=== PATIENT | male | born 1965 | race Caucasian/White ===

== ENCOUNTER 2021-07-22 20:55 | Emergency (ER) | payer BC, SELFPAY ==
[2021-07-22 21:22] VITALS: BP 134/75; PULSE 67; RESP 18; TEMP 36.6; O2SAT 97; BMI 26.7
--- NOTE | 2021-07-22 21:32 | W.ED.WOUNDLC ---
HPI - Wound/Laceration General: Chief Complaint: Wound/Laceration Stated Complaint: Cut Left Hand Time Seen by Provider: 07/22/21 21:29 History of Present Illness: HPI narrative: 56-year-old male patient comes in today with complaints of injury to the left hand. Patient was stressing out a deer when he cut the side of his left hand on the knife. There is a 2-1/2 cm laceration noted to the ulnar side of the hand. Patient has normal range of motion of the hand. Patient cannot recall his last tetanus. Patient denies any allergies. Review of Systems General: Reports: 10 or more systems reviewed and unremarkable except in HPI and below Skin/Breast: Reports: other (Hand laceration) Physical Exam Const: COMMON NORMALS: no acute distress and patient oriented x3 GENERAL APPEARANCE: cooperative HENMT: COMMON NORMALS: normocephalic HEAD & SCALP: normal to inspection and normocephalic Eye: GENERAL EYE: appearance normal, both eyes and all related structures Neck/C-Spine: COMMON NORMALS: full ROM Chest: COMMONS NORMALS: normal inspection of the chest Resp: COMMON NORMALS: normal respiratory effort EFFORT & INSPECTION: Yes able to speak in complete sentences Cardio: COMMON NORMALS: regular rate and regular rhythm RATE: regular rate RHYTHM: regular rhythm GI: COMMON NORMALS: non-tender Extremity: NARRATIVE EXTREMITY EXAM: 2-1/2 cm laceration to the ulnar side of the left hand. Normal range of motion of the hand. Normal tendon function. Distal cap refill and sensation is intact. Neuro: COMMON NORMALS: patient oriented x3 and moves all extremities Psych: COMMON NORMALS: mental status grossly normal and cooperative Skin: COMMON NORMALS: no rashes or lesions noted GENERAL SKIN EXAM: no rashes or lesions noted Procedures Laceration Laceration 1: Site: hand Side (If applicable): left Size (cm): 2.5 Depth: simple, single layer Local Anesthetic: lidocaine 2% and with epi Amount of anesthesia used (mL): 3 Pre-repair: wound explored and irrigated extensively Skin layer closed with: nylon Size (cm): 4-0 Number of sutures: 5 Technique: simple, interrupted Course Vital Signs: Vital signs: Vital Signs Temperature 97.8 F 07/22/21 21:22 Pulse Rate 67 07/22/21 21:22 Respiratory Rate 18 11/15/21 21:22 Blood Pressure 134/75 11/15/21 21:22 Pulse Oximetry 97 07/22/21 21:22 MDM - Wound/Laceration MDM Narrative: Medical decision making narrative: 56-year-old male patient comes in with injury to the left hand. On exam patient has normal range of motion and sensation and tendon function. Patient has a 2-1/2 cm laceration to the ulnar side of the hand. No foreign body is noted. Differential diagnosis includes laceration, tendon injury, need for prophylaxis tetanus. Tetanus was updated. No foreign body or tendon injury was noted. Wound was closed with 5 sutures. Patient tolerated well. Patient be continued on Augmentin twice a day for next 7 days. Patient was instructed to have sutures out in 7 days. Patient reported understanding of care plan and need for follow-up or return to the ER. Discharge Plan Discharge Patient Disposition: Home Clinical Impression: Hand laceration Qualifiers: Encounter type: initial encounter Foreign body presence: without foreign body Laterality: left Qualified Code(s): S61.412A - Laceration without foreign body of left hand, initial encounter Condition: Stable Prescriptions: New Augmentin 875-125 mg tablet 1 tab PO BID Qty: 14 RF: 0 Discharge Orders: Discharge ED (Routine); Ordered 07/22/21 Ordered By: Earle Gomez Discharge Diet: Usual diet Discharge Activity: Increase activity as tolerated Patient Instructions: Laceration (ED), Opioid Safety Activity Restrictions/Additional Instructions: Keep wound clean and dry. It is important to keep the wound as dry as possible for the next 48 hours. After that she can wash wound gently with soap and water then dry thoroughly. Try to avoid submerging wound under water for prolonged periods of time. Follow-up with primary care in 1 week. Sutures out in 7 to 10 days. Return to ER for new concerns. Coding Level of Care Code ED Reconnaissance [employer] for Lizbet Fwjada Exam Comprehensive
[2021-07-22] MEDS: amoxicillin-clav 875-125 mg Tablet 1 TAB PO (21:44)
[2021-07-22] MEDS: tetanus-dipt-pertussis 0.5 mL SDV IM (21:45)
== END 2021-07-22 21:59 | disposition home or self-care (01) ==
PROVIDERS: Emergency Provider Nurse Practitioner Family
DX: S61.412A Laceration without foreign body of left hand, initial encounter (principal); W26.0XXA Contact with knife, initial encounter; Z23 Encounter for immunization
CPT/HCPCS: 12001; 90471; 90715; 99282